=== PATIENT | male | born 1955 | race Caucasian/White ===

== ENCOUNTER 2018-11-28 09:27 | Emergency (ER) | payer MEDICAID ==
[~2018-11-28] VITALS: Ht 170.2 cm; Wt 27.3 kg
[~2018-11-28 09:27] MED LIST: DIPH-423 PO
[2018-11-28] MEDS ORDERED: ondansetron/PF 4mg/2ml inj IV ONE (10:30)
[2018-11-28] MEDS ORDERED: normal saline 1000ML IV soln IVB ONE (10:30)
[2018-11-28 10:49] LABS: CLARITY,URINE CLOUDY (Clear); COLOR,URINE YELLOW (Yellow); GLUCOSE, URINE NEGATIVE (Neg); KETONES,URINE NEGATIVE (Neg); LEUKOCYTE ESTERASE ,URINE LARGE (Neg); NITRITES, URINE POSITIVE (Neg); OCCULT BLOOD,URINE LARGE (Neg); PROTEIN,URINE 30 mg/dl (Neg)
[2018-11-28 10:51] LABS: UA COLLECTION TYPE CLN CATCH MIDSTREAM
[2018-11-28 10:56] LABS: MUCUS STRANDS NONE SEEN /LPF (Neg); RBC,URINE 50-100 /HPF (0-2); SQUAMOUS EPITHELIAL CELL,UR NONE SEEN /LPF (FEW); WBC,URINE TNTC /HPF (0-4)
[2018-11-28 10:57] LABS: WBC CLUMPS,URINE MANY /HPF (NEGATIVE)
[2018-11-28 10:59] LABS: BASOPHILS % (AUTO) 0.4 % (0-1); EOSINOPHILS % (AUTO) 0 % (0-6); HEMATOCRIT 47.7 % (42.0-52.0); HEMOGLOBIN 16.1 g/dl (14.0-17.9); LYMPHOCYTES # (AUTO) 0.7 X10'3 (1.1-4.8); LYMPHOCYTES % (AUTO) 10.8 % (21-51); MEAN CORPUSCULAR HEMOGLOBIN 31.5 PG (27.0-31.0); MEAN CORPUSCULAR HGB CONC 33.9 g/dL (33.0-36.5); MEAN CORPUSCULAR VOLUME 93.2 FL (78-98); MEAN PLATELET VOLUME 7.8 FL (7.4-10.4); MONOCYTES # (AUTO) 1.1 X10'3 (0-0.9); MONOCYTES % (AUTO) 18.5 % (2-12); NEUTROPHILS # (AUTO) 4.4 X10'3 (1.8-7.7); NEUTROPHILS % (AUTO) 70.3 % (42-75); PLATELET COUNT 131 X10'3 (140-440); RED BLOOD COUNT 5.12 X10'6 (4.70-6.10); WHITE BLOOD COUNT 6.2 X10'3 (4.5-11.0)
[2018-11-28 10:59] LABS: BACTERIA,URINE 3+ /HPF (Neg)
[2018-11-28 11:17] LABS: ALANINE AMINOTRANSFERASE 22 U/L (12-78); ALBUMIN 3.6 G/DL (3.4-5.0); ALBUMIN/GLOBULIN RATIO 0.9 (1.1-1.5); ALKALINE PHOSPHATASE 67 IU/L (46-116); ANION GAP 11 (8-16); ASPARTATE AMINO TRANSFERASE 21 U/L (10-37); BILIRUBIN,TOTAL 2.7 MG/DL (0.1-1.0); BLOOD UREA NITROGEN 17 MG/DL (7-18); BUN/CREATININE RATIO 10.4 (5.4-32.0); CALCIUM 9.4 MG/DL (8.5-10.1); CHLORIDE 101 MMOL/L (99-107); CREATININE 1.63 MG/DL (0.60-1.10); GLUCOSE 122 MG/DL (70-104); LIPASE 82 U/L (73-393); POTASSIUM 3.8 MMOL/L (3.5-5.1); SODIUM 137 MMOL/L (135-145); TOTAL CARBON DIOXIDE 25.2 MMOL/L (24-32); TOTAL PROTEIN 7.4 G/DL (6.4-8.2); eGFR 43 ML/MIN
[2018-11-28 11:27] LABS: TOTAL CELLS COUNTED 100
[2018-11-28 11:28] LABS: PLATELET ESTIMATE DECREASED
[2018-11-28] MEDS ORDERED: CefTRIAXone/D5W-Rocephin 1gm 50 ML IV ONE (11:30)
[2018-11-28 12:02] VITALS: BP 144/82
[2018-11-28] MEDS: morphine 4 MG/ML inj SYRINge IV PRN ×2 (12:08→13:06)
[2018-11-28] MEDS ORDERED: CIPR-230 PO (12:26)
[2018-11-28] MEDS ORDERED: HYDR-3965 PO (12:26)
== END 2018-11-28 13:22 | disposition home or self-care (01) ==
LOC: ER 09:28
DX: N45.3 Epididymo-orchitis (principal); I25.10 Atherosclerotic heart disease of native coronary artery without angina pectoris; I25.2 Old myocardial infarction; G89.29 Other chronic pain; F12.90 Cannabis use, unspecified, uncomplicated; Z98.890 Other specified postprocedural states
CPT/HCPCS: 36415; 76870; 80053; 81001; 83690; 85025; 87077; 87088; 87186; 96365; 96375; 96376; 99284; J0696; J2270; J2405; J7030

== ENCOUNTER 2018-12-10 13:28 | Inpatient (IN) | payer MEDICAID ==
[~2018-12-10] VITALS: Ht 170.2 cm; Wt 71.0 kg
[~2018-12-10 13:28] MED LIST changes: +CIPR-230 PO
[2018-12-10] MEDS ORDERED: CefTRIAXone 2gm/D5W 50ml 50 ML IV ONE (13:45)
[2018-12-10] MEDS ORDERED: normal saline 1000ML IV soln IV ONE (13:45)
[2018-12-10 14:09] LABS: BASOPHILS % (AUTO) 0.4 % (0-1); EOSINOPHILS # (AUTO) 0.1 X10'3 (0-0.9); EOSINOPHILS % (AUTO) 0.5 % (0-6); HEMATOCRIT 49.1 % (42.0-52.0); HEMOGLOBIN 16.7 g/dl (14.0-17.9); LYMPHOCYTES # (AUTO) 1.5 X10'3 (1.1-4.8); LYMPHOCYTES % (AUTO) 15.1 % (21-51); MEAN CORPUSCULAR HEMOGLOBIN 31.7 PG (27.0-31.0); MEAN CORPUSCULAR VOLUME 93.2 FL (78-98); MEAN PLATELET VOLUME 7.3 FL (7.4-10.4); MONOCYTES # (AUTO) 1.3 X10'3 (0-0.9); MONOCYTES % (AUTO) 13.6 % (2-12); NEUTROPHILS # (AUTO) 6.8 X10'3 (1.8-7.7); NEUTROPHILS % (AUTO) 70.4 % (42-75); PLATELET COUNT 315 X10'3 (140-440); RED BLOOD COUNT 5.27 X10'6 (4.70-6.10); RED CELL DISTRIBUTION WIDTH 13.6 % (11.5-14.5); WHITE BLOOD COUNT 9.7 X10'3 (4.5-11.0)
[2018-12-10 14:24] LABS: INR 1.1 INR; PARTIAL THROMBOPLASTIN TIME 30 SECONDS (22-32); PROTHROMBIN TIME 10.7 SECONDS (9.0-12.0)
[2018-12-10 14:35] LABS: ALANINE AMINOTRANSFERASE 23 U/L (12-78); ALBUMIN 3.7 G/DL (3.4-5.0); ALBUMIN/GLOBULIN RATIO 0.9 (1.1-1.5); ALKALINE PHOSPHATASE 80 IU/L (46-116); ANION GAP 9 (8-16); ASPARTATE AMINO TRANSFERASE 18 U/L (10-37); BILIRUBIN,TOTAL 1.2 MG/DL (0.1-1.0); BLOOD UREA NITROGEN 16 MG/DL (7-18); BUN/CREATININE RATIO 10.3 (5.4-32.0); CALCIUM 9.8 MG/DL (8.5-10.1); CHLORIDE 105 MMOL/L (99-107); CREATININE 1.56 MG/DL (0.60-1.10); GLUCOSE 78 MG/DL (70-104); POTASSIUM 4.2 MMOL/L (3.5-5.1); SODIUM 142 MMOL/L (135-145); TOTAL CARBON DIOXIDE 28.1 MMOL/L (24-32); TOTAL PROTEIN 7.9 G/DL (6.4-8.2); eGFR 45 ML/MIN
[2018-12-10 15:23] LABS: CLARITY,URINE CLOUDY (Clear); COLOR,URINE YELLOW (Yellow); GLUCOSE, URINE NEGATIVE (Neg); KETONES,URINE NEGATIVE (Neg); LEUKOCYTE ESTERASE ,URINE LARGE (Neg); NITRITES, URINE POSITIVE (Neg); OCCULT BLOOD,URINE SMALL (Neg); PH,URINE 5.5 (4.8-8.0); PROTEIN,URINE TRACE mg/dl (Neg); UROBILINOGEN,URINE 0.2 E.U/dL (0.2-1.0)
[2018-12-10 15:27] LABS: UA COLLECTION TYPE CLN CATCH MIDSTREAM
[2018-12-10 15:28] LABS: BACTERIA,URINE 4+ /HPF (Neg); MUCUS STRANDS NONE SEEN /LPF (Neg); SQUAMOUS EPITHELIAL CELL,UR FEW /LPF (FEW); WBC,URINE TNTC /HPF (0-4)
[2018-12-10] MEDS ORDERED: piperacillin/tazo 3.375gm/50ml 50 ML IV ONE (15:35)
[2018-12-10] MEDS ORDERED: fentaNYL/PF 50MCG/1 ML 2ML syringe IV ONE (15:40)
[2018-12-10] MEDS ORDERED: magnesium 4gm in 100ml NS 100 ML IV PRN (16:00)
[2018-12-10] MEDS ORDERED: magnesium hydroxide 30ml (MOM) UD suspension PO PRN (16:00)
[2018-12-10] MEDS ORDERED: magnesium Cl slow-release 64mg tablet PO PRN (16:00)
[2018-12-10] MEDS ORDERED: potassium Cl 20 mEq SR tablet PO PRN ×2 (16:00)
[2018-12-10] MEDS: piperacillin/tazo 3.375gm/50ml 50 ML IV SCH ×2 (16:00→23:41)
[2018-12-10] MEDS ORDERED: morphine 4 MG/ML inj SYRINge IV PRN (16:00)
[2018-12-10] MEDS ORDERED: mag hydrox/Alum hydrox/simeth 30ml oral suspension PO PRN (16:00)
[2018-12-10] MEDS ORDERED: potassium Cl 40MEQ/NS 500ml 500 ML IV PRN ×2 (16:00)
[2018-12-10] MEDS ORDERED: HYDROcodone/acetaminophen 5mg/325mg tablet PO PRN ×2 (16:00→16:10)
[2018-12-10] MEDS ORDERED: magnesium 2GM in 50ml NS 50 ML IV PRN (16:00)
[2018-12-10] MEDS ORDERED: acetaminophen 325mg tablet PO PRN ×2 (16:00)
[2018-12-10] MEDS ORDERED: ASPI-1265 PO (16:01)
[2018-12-10] MEDS ORDERED: NITR0.4T51 SL (16:01)
[2018-12-10] MEDS ORDERED: HYDR-3965 PO (16:01)
[2018-12-10] MEDS ORDERED: ATOR20TA PO (16:01)
[2018-12-10] MEDS ORDERED: vitamin d3 PO (16:01)
[2018-12-10] MEDS ORDERED: nitroGLYCERIN 0.4mg SUBLingual tab SL PRN (16:10)
[2018-12-10] MEDS: sodium chloride 0.45% 1,000 ML IV SCH (16:42)
[2018-12-10] MEDS: metroNIDAZOLE-Flagyl 500mg/NS 100 ML IV SCH ×2 (16:56→23:35)
[2018-12-10 17:13] VITALS: BP 133/75
[2018-12-10 18:00] VITALS: BP 159/85
--- NOTE | 2018-12-10 18:41 | NUR ---
REPORT REC'D FROM KENYETTA ESCUDERO. REPORTEDLY THE PT HAS CHRONIC PAIN AND C/O 10/10 PAIN AT ALL TIMES. SX TODAY WITH TOE AMPUTATION AND DEBRIDEMENT. WILL CONTINUE TO COVER PAIN PRESCRIBED. Addendum: 12/10/18 at 1907 by Tamera Serra RN DISREGARD THIS NOTE, WRONG PT. REPORT REC'D FROM KENYETTA ESCUDERO. REPORTEDLY THE PT HAS CHRONIC PAIN AND C/O 10/10 PAIN AT ALL TIMES. SX TODAY WITH TOE AMPUTATION AND DEBRIDEMENT. WILL CONTINUE TO COVER PAIN PRESCRIBED.
--- NOTE | 2018-12-10 19:14 | NUR ---
REPORT REC'D FROM KENYETTA KAYE. PT ARRIVED ON FLOOR ACCORDING TO REPORT APPROX. 1700. PT REPORTS PAIN 8/10, COVERED BY MS 1MG, NOT HAPPY WITH NSG BECAUSE THEY DIDNT GIVE HIM MORE, SOONER. PT IS UNHAPPY THAT HE HASNT EATEN YET AND IS REFUSING PO [place]CO. PT WAS GIVEN DIET DINNER MEAL. PT IS UNHAPPY THAT HE CANT HAVE "4 7UPS", PT IS ON DIET WITH UTI. PT WAS GIVEN JUICE AND WATER.
[2018-12-10] MEDS: atorvastatin 20mg tablet PO SCH (21:00)
[2018-12-10] MEDS: morphine 4 MG/ML inj SYRINge IV PRN (21:44)
[2018-12-10] MEDS: ondansetron/PF 4mg/2ml inj IV PRN (21:45)
[2018-12-10] MEDS: heparin, porcine 5000 units/ml vial SQ SCH (21:50)
[2018-12-10 22:00] VITALS: BP 151/87
[2018-12-11] MEDS: morphine 4 MG/ML inj SYRINge IV PRN ×5 (01:36→17:02)
[2018-12-11 02:00] VITALS: BP 122/62
[2018-12-11 06:00] VITALS: BP 113/66
--- NOTE | 2018-12-11 06:33 | NUR ---
REPORT GIVEN TO KENYETTA KAYE.
[2018-12-11 06:51] LABS: BASOPHILS % (AUTO) 0.3 % (0-1); EOSINOPHILS % (AUTO) 0.3 % (0-6); HEMATOCRIT 42.4 % (42.0-52.0); HEMOGLOBIN 14.3 g/dl (14.0-17.9); LYMPHOCYTES # (AUTO) 1.8 X10'3 (1.1-4.8); LYMPHOCYTES % (AUTO) 20.9 % (21-51); MEAN CORPUSCULAR HEMOGLOBIN 31.2 PG (27.0-31.0); MEAN CORPUSCULAR HGB CONC 33.7 g/dL (33.0-36.5); MEAN CORPUSCULAR VOLUME 92.6 FL (78-98); MEAN PLATELET VOLUME 7.6 FL (7.4-10.4); MONOCYTES # (AUTO) 1.2 X10'3 (0-0.9); NEUTROPHILS # (AUTO) 5.5 X10'3 (1.8-7.7); NEUTROPHILS % (AUTO) 64.5 % (42-75); PLATELET COUNT 229 X10'3 (140-440); RED BLOOD COUNT 4.58 X10'6 (4.70-6.10); RED CELL DISTRIBUTION WIDTH 13.3 % (11.5-14.5); WHITE BLOOD COUNT 8.6 X10'3 (4.5-11.0)
[2018-12-11 07:19] LABS: ALANINE AMINOTRANSFERASE 14 U/L (12-78); ALBUMIN 2.9 G/DL (3.4-5.0); ALBUMIN/GLOBULIN RATIO 0.8 (1.1-1.5); ALKALINE PHOSPHATASE 67 IU/L (46-116); ANION GAP 9 (8-16); ASPARTATE AMINO TRANSFERASE 16 U/L (10-37); BLOOD UREA NITROGEN 14 MG/DL (7-18); BUN/CREATININE RATIO 8.5 (5.4-32.0); CALCIUM 8.9 MG/DL (8.5-10.1); CHLORIDE 105 MMOL/L (99-107); CREATININE 1.64 MG/DL (0.60-1.10); GLUCOSE 102 MG/DL (70-104); MAGNESIUM 1.8 MG/DL (1.5-2.4); POTASSIUM 3.9 MMOL/L (3.5-5.1); SODIUM 140 MMOL/L (135-145); TOTAL CARBON DIOXIDE 26.1 MMOL/L (24-32); TOTAL PROTEIN 6.4 G/DL (6.4-8.2); eGFR 43 ML/MIN
[2018-12-11] MEDS: vitamin D (cholecalciferol) 1,000 unit tablet PO SCH (08:00)
[2018-12-11] MEDS: K and/or MAG REPLACEMENT MC SCH (08:00)
[2018-12-11] MEDS: metroNIDAZOLE-Flagyl 500mg/NS 100 ML IV SCH (08:43)
[2018-12-11] MEDS: heparin, porcine 5000 units/ml vial SQ SCH ×2 (08:44→20:00)
[2018-12-11] MEDS: sodium chloride 0.45% 1,000 ML IV SCH ×3 (08:55→21:58)
[2018-12-11 10:00] VITALS: BP 119/83
[2018-12-11] MEDS: piperacillin/tazo 3.375gm/50ml 50 ML IV SCH ×2 (10:41→16:56)
[2018-12-11] MEDS: ondansetron/PF 4mg/2ml inj IV PRN ×2 (12:59→19:27)
--- NOTE | 2018-12-11 18:57 | NUR ---
REPORT REC'D FROM KENYETTA KAYE.
[2018-12-11] MEDS: lactobacillus rhamnosus 10,000 MMU CELLS/CAPSULE PO SCH (20:00)
[2018-12-11] MEDS: atorvastatin 20mg tablet PO SCH (20:29)
[2018-12-11 22:00] VITALS: BP 136/69
[2018-12-12] MEDS: piperacillin/tazo 3.375gm/50ml 50 ML IV SCH ×2 (00:08→08:10)
[2018-12-12 05:54] LABS: ALANINE AMINOTRANSFERASE 12 U/L (12-78); ALBUMIN/GLOBULIN RATIO 0.8 (1.1-1.5); ALKALINE PHOSPHATASE 58 IU/L (46-116); ANION GAP 5 (8-16); ASPARTATE AMINO TRANSFERASE 15 U/L (10-37); BILIRUBIN,TOTAL 1.9 MG/DL (0.1-1.0); BLOOD UREA NITROGEN 16 MG/DL (7-18); BUN/CREATININE RATIO 9.2 (5.4-32.0); CALCIUM 9.2 MG/DL (8.5-10.1); CHLORIDE 104 MMOL/L (99-107); CREATININE 1.74 MG/DL (0.60-1.10); GLUCOSE 90 MG/DL (70-104); MAGNESIUM 1.9 MG/DL (1.5-2.4); POTASSIUM 4.1 MMOL/L (3.5-5.1); SODIUM 138 MMOL/L (135-145); TOTAL PROTEIN 6.7 G/DL (6.4-8.2); eGFR 40 ML/MIN
[2018-12-12 06:00] VITALS: BP 115/69
[2018-12-12 06:01] LABS: BASOPHILS % (AUTO) 0.5 % (0-1); EOSINOPHILS # (AUTO) 0.1 X10'3 (0-0.9); EOSINOPHILS % (AUTO) 1.1 % (0-6); HEMATOCRIT 43.6 % (42.0-52.0); HEMOGLOBIN 14.6 g/dl (14.0-17.9); LYMPHOCYTES # (AUTO) 1.4 X10'3 (1.1-4.8); LYMPHOCYTES % (AUTO) 21.9 % (21-51); MEAN CORPUSCULAR HEMOGLOBIN 31.2 PG (27.0-31.0); MEAN CORPUSCULAR HGB CONC 33.6 g/dL (33.0-36.5); MEAN PLATELET VOLUME 7.6 FL (7.4-10.4); MONOCYTES # (AUTO) 0.9 X10'3 (0-0.9); MONOCYTES % (AUTO) 13.8 % (2-12); NEUTROPHILS % (AUTO) 62.7 % (42-75); PLATELET COUNT 226 X10'3 (140-440); RED BLOOD COUNT 4.69 X10'6 (4.70-6.10); RED CELL DISTRIBUTION WIDTH 13.2 % (11.5-14.5); WHITE BLOOD COUNT 6.4 X10'3 (4.5-11.0)
--- NOTE | 2018-12-12 06:30 | NUR ---
Patient in room [facility]TH[facility] 4023. I have received report from KENYETTA Philip and had the opportunity to ask questions and assume patient care.
--- NOTE | 2018-12-12 06:50 | NUR ---
REPORT GIVEN TO KENYETTA KAYE.
[2018-12-12] MEDS: lactobacillus rhamnosus 10,000 MMU CELLS/CAPSULE PO SCH ×2 (08:10→20:35)
[2018-12-12] MEDS: vitamin D (cholecalciferol) 1,000 unit tablet PO SCH (08:11)
[2018-12-12] MEDS: heparin, porcine 5000 units/ml vial SQ SCH ×2 (08:12→20:36)
[2018-12-12] MEDS: sodium chloride 0.45% 1,000 ML IV SCH ×2 (08:14→18:30)
[2018-12-12 10:00] VITALS: BP 124/64
[2018-12-12] MEDS: meropenem inj 1 GM in normal saline 100ml IV soln 100 ML IV SCH ×2 (13:00→22:35)
[2018-12-12 17:00] VITALS: BP 137/86
--- NOTE | 2018-12-12 18:46 | NUR ---
Problems reprioritized. Patient report given, questions answered & plan of care reviewed with KENYETTA Vidal.
[2018-12-12] MEDS: atorvastatin 20mg tablet PO SCH (20:35)
[2018-12-12 22:00] VITALS: BP 120/61
[2018-12-13 06:00] VITALS: BP 139/71
--- NOTE | 2018-12-13 06:15 | NUR ---
Patient in room [facility]TH[facility] 4023. I have received report from ANTHONY RN and had the opportunity to ask questions and assume patient care.
[2018-12-13 07:01] LABS: BASOPHILS # (AUTO) 0.1 X10'3 (0-0.2); EOSINOPHILS # (AUTO) 0.1 X10'3 (0-0.9); EOSINOPHILS % (AUTO) 1.1 % (0-6); HEMATOCRIT 46.7 % (42.0-52.0); HEMOGLOBIN 15.8 g/dl (14.0-17.9); LYMPHOCYTES # (AUTO) 1.6 X10'3 (1.1-4.8); LYMPHOCYTES % (AUTO) 26.8 % (21-51); MEAN CORPUSCULAR HEMOGLOBIN 31.4 PG (27.0-31.0); MEAN CORPUSCULAR HGB CONC 33.9 g/dL (33.0-36.5); MEAN CORPUSCULAR VOLUME 92.6 FL (78-98); MEAN PLATELET VOLUME 7.7 FL (7.4-10.4); MONOCYTES # (AUTO) 0.7 X10'3 (0-0.9); MONOCYTES % (AUTO) 11.8 % (2-12); NEUTROPHILS # (AUTO) 3.4 X10'3 (1.8-7.7); NEUTROPHILS % (AUTO) 59.3 % (42-75); PLATELET COUNT 216 X10'3 (140-440); RED BLOOD COUNT 5.04 X10'6 (4.70-6.10); RED CELL DISTRIBUTION WIDTH 13.4 % (11.5-14.5); WHITE BLOOD COUNT 5.8 X10'3 (4.5-11.0)
[2018-12-13 07:27] LABS: ALANINE AMINOTRANSFERASE 18 U/L (12-78); ALBUMIN 3.2 G/DL (3.4-5.0); ALBUMIN/GLOBULIN RATIO 0.8 (1.1-1.5); ALKALINE PHOSPHATASE 59 IU/L (46-116); ANION GAP 11 (8-16); ASPARTATE AMINO TRANSFERASE 22 U/L (10-37); BILIRUBIN,TOTAL 0.7 MG/DL (0.1-1.0); BLOOD UREA NITROGEN 20 MG/DL (7-18); BUN/CREATININE RATIO 13.2 (5.4-32.0); CALCIUM 9.8 MG/DL (8.5-10.1); CHLORIDE 105 MMOL/L (99-107); CREATININE 1.51 MG/DL (0.60-1.10); GLUCOSE 91 MG/DL (70-104); MAGNESIUM 1.9 MG/DL (1.5-2.4); POTASSIUM 4.4 MMOL/L (3.5-5.1); SODIUM 139 MMOL/L (135-145); TOTAL CARBON DIOXIDE 23.3 MMOL/L (24-32); TOTAL PROTEIN 7.2 G/DL (6.4-8.2); eGFR 47 ML/MIN
[2018-12-13] MEDS: sodium chloride 0.45% 1,000 ML IV SCH (07:53)
[2018-12-13] MEDS: K and/or MAG REPLACEMENT MC SCH (08:00)
[2018-12-13] MEDS: lactobacillus rhamnosus 10,000 MMU CELLS/CAPSULE PO SCH (08:03)
[2018-12-13] MEDS: vitamin D (cholecalciferol) 1,000 unit tablet PO SCH (08:03)
[2018-12-13] MEDS: meropenem inj 1 GM in normal saline 100ml IV soln 100 ML IV SCH (08:03)
[2018-12-13] MEDS: heparin, porcine 5000 units/ml vial SQ SCH (08:04)
[2018-12-13 10:00] VITALS: BP 144/71
[2018-12-13] MEDS ORDERED: SULF1TAB49 PO (11:39)
--- NOTE | 2018-12-13 13:02 | NUR ---
WHEN DISCHARGING THIS PATIENT I WAS GOING OVER HIS MEDICATION BACTRIM THAT WAS BEING DELIVERED BY [facility]. [facility] WAS UNABLE TO REFILL THE MEDICATION D/T THE PATIENT PICKING IT UP EARLIER, IT WAS UNAVAILABLE FOR REFILL UNTIL A LATER DATE. I EXPLAINED TO THE PATIENT THAT HE NEEDS TO CONTINUE TO TAKE THIS MEDICATION THAT HE HAS AT HOME. HE STATED "THE SAME MEDICATION THAT MADE ME SICK". I PRINTED THE MICROBIOLOGY REPORT TO SHOW HIM THAT THE MEDICATION IS SUSCEPTIBLE TO THE BACTERIA AND THAT IT IS SAFE TO TAKE. HE SAID "I WILL FOLLOW UP WITH MY PCP AND CALL A [employer] FEEDER CAUSE I AM SUING THIS PLACE.
== END 2018-12-13 13:05 | disposition home or self-care (01) | DRG 501 ==
LOC: ER 13:29 → ED HOLD 15:58 → ORTHO 4S 16:34
PROVIDERS: ADMIT Internal Medicine; ATTEND Family Medicine
DX: N45.3 Epididymo-orchitis (principal); N17.9 Acute kidney failure, unspecified; K62.3 Rectal prolapse; N39.0 Urinary tract infection, site not specified; B96.20 Unspecified Escherichia coli [E. coli] as the cause of diseases classified elsewhere; E78.00 Pure hypercholesterolemia, unspecified; E78.5 Hyperlipidemia, unspecified; F12.90 Cannabis use, unspecified, uncomplicated; I25.10 Atherosclerotic heart disease of native coronary artery without angina pectoris; N18.9 Chronic kidney disease, unspecified; Z60.2 Problems related to living alone; G89.29 Other chronic pain; M54.9 Dorsalgia, unspecified; N43.3 Hydrocele, unspecified; Z90.5 Acquired absence of kidney; I25.2 Old myocardial infarction; Z79.899 Other long term (current) drug therapy; Z79.82 Long term (current) use of aspirin
CPT/HCPCS: 36415; 71045; 74176; 76870; 80053; 81001; 83605; 83735; 84145; 85025; 85610; 85730; 87040; 87070; 87077; 87088; 87186; 93005; 96365; 96367; 96375; 99285; G0378; J0696; J1644; J2185; J2270; J2405; J2543; J3010; J3490; J7030